=== PATIENT | male | born 1990 | race Two or more races ===

== ENCOUNTER 2023-01-13 00:38 | Emergency (ER) | payer OTHER ==
[~2023-01-13] VITALS: Ht 185.4 cm; Wt 122.5 kg
== END 2023-01-13 03:49 | disposition home or self-care (01) ==
LOC: ER 00:38
DX: H57.10 Ocular pain, unspecified eye (principal); Z88.6 Allergy status to analgesic agent

== ENCOUNTER 2023-02-06 22:55 | Emergency (ER) | payer OTHER ==
[~2023-02-06] VITALS: Ht 185.4 cm; Wt 127.0 kg
[2023-02-07 02:02] LABS: HEMATOCRIT 41.1 % (39.0-48.0); HEMOGLOBIN 14.6 g/dL (13-16.00); MEAN CELL VOLUME 83.1 fL (80.0-100.00); MEAN CORPUSCULAR HEMOGLOBIN 29.4 pg (27.00-32.0); MEAN CORPUSCULAR HGB CONC 35.4 g/dl (32.0-36.0); PLATELET COUNT 187 K/uL (150-450); RED BLOOD COUNT 4.95 M/uL (4.00-6.00)
[2023-02-07] MEDS ORDERED: ALBUTEROL2.5 MG/3 M IH (04:24)
[2023-02-07] MEDS ORDERED: ZYNCOF 20-400120 ML PO (04:24)
[2023-02-07] MEDS ORDERED: OSEL75CA PO (04:24)
[2023-02-07 05:38] LABS: ABG PH 7.424 (7.35-7.45); ABG PO2 84.2 mmHg (80-100); ABG pCO2 36.7 mmHg (35-45)
[2023-02-07 05:39] LABS: BASE EXCESS -0.5 mmol/l; BICARBONATE 23.5 mmol/l (23-25); SaO2 96.5 %; Tco2 24.6 mmol/l; allen test SATISFACTORY; o2 21 %; puncture site RADIAL RIGHT
== END 2023-02-07 04:26 | disposition home or self-care (01) ==
LOC: ER 22:55
PROVIDERS: General Practice
DX: J10.1 Influenza due to other identified influenza virus with other respiratory manifestations (principal); Z88.6 Allergy status to analgesic agent; Z20.822 Contact with and (suspected) exposure to COVID-19